=== PATIENT | male | born 1970 | race Caucasian/White ===

== ENCOUNTER 2017-06-03 08:32 | Emergency (ER) | payer BC, MEDICAID ==
[~2017-06-03] VITALS: Ht 172.7 cm; Wt 80.0 kg
[2017-06-03 08:36] VITALS: BP 122/98
[2017-06-03] MEDS ORDERED: ALBU18HF INH (08:52)
[2017-06-03] MEDS ORDERED: DEXAMETHASONE 4 MG/ML, 1ML ONE (09:30)
[2017-06-03] MEDS ORDERED: DEXAMETHASONE 4 MG/ML, 1ML PO ONE (09:30)
== END 2017-06-03 09:54 | disposition home or self-care (01) ==
LOC: ED 08:57
DX: J45.31 Mild persistent asthma with (acute) exacerbation (principal); Z76.0 Encounter for issue of repeat prescription
CPT/HCPCS: 93005; 99283; J1100

== ENCOUNTER 2017-07-08 07:47 | Emergency (ER) | payer BC ==
[~2017-07-08] VITALS: Ht 172.7 cm; Wt 83.0 kg
[~2017-07-08 07:47] MED LIST: ALBU18HF INH
[2017-07-08 07:56] VITALS: BP 154/101
[2017-07-08] MEDS ORDERED: ALBU2.5V NEB (08:04)
== END 2017-07-08 08:46 | disposition home or self-care (01) ==
LOC: ED 08:38
DX: J45.40 Moderate persistent asthma, uncomplicated (principal)
CPT/HCPCS: 99283

== ENCOUNTER 2018-06-01 10:01 | Emergency (ER) | payer BC ==
[~2018-06-01] VITALS: Ht 172.7 cm; Wt 83.4 kg
[~2018-06-01 10:01] MED LIST changes: +ALBU2.5V NEB
[2018-06-01 10:17] VITALS: BP 142/97
== END 2018-06-01 11:09 | disposition home or self-care (01) ==
LOC: ED 11:03
DX: L24.9 Irritant contact dermatitis, unspecified cause (principal); J45.909 Unspecified asthma, uncomplicated
CPT/HCPCS: 99283

== ENCOUNTER 2019-05-17 11:14 | Emergency (ER) | payer BC ==
[~2019-05-17] VITALS: Ht 175.3 cm; Wt 83.0 kg
[2019-05-17 11:17] VITALS: BP 152/3
== END 2019-05-17 12:10 | disposition home or self-care (01) ==
LOC: ED 12:04
DX: J45.41 Moderate persistent asthma with (acute) exacerbation (principal); L24.5 Irritant contact dermatitis due to other chemical products
CPT/HCPCS: 71046; 94640; 99283; J7620

== ENCOUNTER 2019-05-26 08:50 | Emergency (ER) | payer BC ==
[~2019-05-26] VITALS: Ht 172.7 cm; Wt 82.9 kg
[2019-05-26 09:38] VITALS: BP 139/79
== END 2019-05-26 09:40 | disposition home or self-care (01) ==
LOC: ED 09:34
DX: R42 Dizziness and giddiness (principal); I10 Essential (primary) hypertension; J45.909 Unspecified asthma, uncomplicated
CPT/HCPCS: 93005; 99283

== ENCOUNTER 2019-08-26 08:52 | Emergency (ER) | payer BC ==
[~2019-08-26] VITALS: Ht 172.7 cm; Wt 83.5 kg
[2019-08-26 10:05] VITALS: BP 148/108
== END 2019-08-26 10:45 | disposition home or self-care (01) ==
LOC: ED 10:43
DX: I10 Essential (primary) hypertension (principal)
CPT/HCPCS: 93005; 99283

== ENCOUNTER 2020-02-08 10:13 | Emergency (ER) | payer BC ==
[~2020-02-08] VITALS: Ht 172.7 cm; Wt 85.5 kg
--- NOTE | 2020-02-08 10:27 | NUR ---
EKG AND VITALS DONE BY THIS TECH
[2020-02-08] MEDS ORDERED: ALBUTEROL/IPRATROPIUM 2.5MG/0.5MG, 3 ML NPPB ONE (10:30)
[2020-02-08] MEDS ORDERED: methylPREDNISolone SOD SUCC 125 MG/2 ML IV ONE (10:30)
[2020-02-08] MEDS ORDERED: methylPREDNISolone SOD SUCC 125 MG/2 ML ONE (10:39)
[2020-02-08] MEDS ORDERED: ALBUTEROL/IPRATROPIUM 2.5MG/0.5MG, 3 ML ONE (10:39)
[2020-02-08 11:37] VITALS: BP 150/86
== END 2020-02-08 11:45 | disposition home or self-care (01) ==
LOC: ED 10:26
DX: J45.31 Mild persistent asthma with (acute) exacerbation (principal); I10 Essential (primary) hypertension; Z87.891 Personal history of nicotine dependence
CPT/HCPCS: 71045; 93005; 94640; 96374; 99283; J2930

== ENCOUNTER 2020-07-28 06:57 | Emergency (ER) | payer BC ==
[~2020-07-28] VITALS: Ht 172.7 cm; Wt 88.0 kg
[2020-07-28] MEDS ORDERED: DEXAMETHASONE 4 MG TABLET ONE (07:50)
[2020-07-28] MEDS ORDERED: DEXAMETHASONE 4 MG TABLET PO ONE (08:00)
[2020-07-28 08:55] VITALS: BP 137/92
== END 2020-07-28 08:58 | disposition home or self-care (01) ==
LOC: ED 08:52
DX: J45.40 Moderate persistent asthma, uncomplicated (principal); I10 Essential (primary) hypertension
CPT/HCPCS: 99283

== ENCOUNTER 2020-12-24 09:43 | Emergency (ER) | payer BC ==
[~2020-12-24] VITALS: Ht 172.7 cm; Wt 51.6 kg
[2020-12-24] MEDS ORDERED: ALBUTEROL/IPRATROPIUM 2.5MG/0.5MG, 3 ML ONE (10:16)
[2020-12-24] MEDS ORDERED: ALBUTEROL/IPRATROPIUM 2.5MG/0.5MG, 3 ML NPPB ONE (10:30)
--- NOTE | 2020-12-24 10:37 | NUR ---
50 yo male came in with SOB x 1 week, ran out of inhaler, requesting new prescriptions, respirations unlabored and even able to converse without difficulty, no s/s of respiratory distress.
--- NOTE | 2020-12-24 10:43 | NUR ---
sitting up in [facility] with breathing treatment
[2020-12-24 10:58] VITALS: BP 139/111
--- NOTE | 2020-12-24 10:59 | NUR ---
Patient resting on gurney after breathing treatment stated "he feels alot better" vss
--- NOTE | 2020-12-24 11:30 | NUR ---
Patient given discharge instructions and they have confirmed that they understand the instructions. Patient ambulatory with steady gait.
== END 2020-12-24 11:31 | disposition home or self-care (01) ==
LOC: ED 11:25
DX: J45.41 Moderate persistent asthma with (acute) exacerbation (principal); I10 Essential (primary) hypertension
CPT/HCPCS: 94640; 99283; J7512

== ENCOUNTER 2021-01-17 10:20 | Emergency (ER) | payer BC ==
[~2021-01-17] VITALS: Ht 172.7 cm; Wt 93.8 kg
--- NOTE | 2021-01-17 10:45 | NUR ---
PT AMBULATORY TO ROOM 9 W/ C/O HTN. STATES HE HAS BEEN SEEN HERE 2 MONTHS AGO FOR SAME AND WAS PRESCRIBED HTN MEDS. PT STATES HE HAS NOT FOUND PCP AND RAN OUT OF BP MEDS X 1 MONTH. PT STATES HE WENT TO SEE PAIN SPECIALIST AND WAS TOLD TO COME BACK TO ED FOR HTN. ERP DR. MONROY AT BEDSIDE FOR EVAL. PT EDUCATED ON IMPORTANCE OF GETTING PCP.
--- NOTE | 2021-01-17 11:16 | NUR ---
PT RESTING ON GURNEY. NAND. CAMPOS.
[2021-01-17 11:17] LABS: BASOPHILS % (AUTO) 1 % (0-1); EOSINOPHILS % (AUTO) 2 % (1-7); LYMPHOCYTES % (AUTO) 20 % (22-44); MEAN CORPUSCULAR HEMOGLOBIN 28.3 pg (27.5-34.5); MEAN CORPUSCULAR HGB CONC 33.1 g/dL (33.2-36.2); MEAN PLATELET VOLUME 8.3 fL (7.4-10.4); MONOCYTES % (AUTO) 10 % (2-9); NEUTROPHILS % (AUTO) 67 % (42-75); PLATELET COUNT 344 x10^3/uL (130-400); RED BLOOD COUNT 5.48 x10^6/uL (4.38-5.82)
[2021-01-17 11:26] LABS: ANION GAP 6 mmol/L (5-15); CALCIUM 8.8 mg/dL (8.5-10.1); CHLORIDE 108 mmol/L (98-107)
[2021-01-17 11:36] LABS: MD SCAN
[2021-01-17 12:06] VITALS: BP 168/109
--- NOTE | 2021-01-17 12:06 | NUR ---
PT RESTING ON GURNEY. NADN. BP REMAINS ELEVATED. ERP DR. MONROY TO BE NOTIFIED.
--- NOTE | 2021-01-17 12:16 | NUR ---
PER ERP DR. MONROY NO NEED TO TREAT PT'S BP IN ED. RX PROVIDED FOR PT W/ DC PAPERWORK.
== END 2021-01-17 12:18 | disposition home or self-care (01) ==
LOC: ED 10:36
DX: I10 Essential (primary) hypertension (principal); J45.909 Unspecified asthma, uncomplicated; Z88.0 Allergy status to penicillin; Z88.8 Allergy status to other drugs, medicaments and biological substances; Z87.891 Personal history of nicotine dependence
CPT/HCPCS: 36415; 80048; 85025; 93005; 99284

== ENCOUNTER 2021-06-13 07:04 | Emergency (ER) | payer BC ==
[~2021-06-13] VITALS: Ht 172.7 cm; Wt 82.6 kg
--- NOTE | 2021-06-13 07:24 | NUR ---
THIS IS A 51 YEAR OLD MALE WHO C/O SOB AND TIGHTNESS IN CHEST DUE TO ASTHMA. PT STATES HE HAS USED HIS INHALER "A LOT" AND NEEDS A REFILL. SYMPTOMS STARTED WHEN THE SMOKE GOT BAD.
[2021-06-13] MEDS ORDERED: ALBUTEROL/IPRATROPIUM 2.5MG/0.5MG, 3 ML ONE (07:32)
--- NOTE | 2021-06-13 07:53 | NUR ---
MEDICATED PER ORDERS, PT VERBALIZED NO NEEDS AT THIS TIME
[2021-06-13 07:59] VITALS: BP 150/83
--- NOTE | 2021-06-13 07:59 | NUR ---
Patient/Caregiver given discharge instructions and they have confirmed that they understand the instructions. Patient ambulatory with steady gait. NAD, all questions answered appropriately, denies additional needs at this time. No personal belongings left in room after discharge.
[2021-06-13] MEDS ORDERED: ALBUTEROL/IPRATROPIUM 2.5MG/0.5MG, 3 ML NPPB PRN (08:00)
== END 2021-06-13 08:02 | disposition home or self-care (01) ==
LOC: ED 07:07
DX: J45.41 Moderate persistent asthma with (acute) exacerbation (principal)
CPT/HCPCS: 93005; 94640; 99283; J7512